=== PATIENT | female | born 1980 | race Asian ===

== ENCOUNTER 2017-03-04 04:30 | Inpatient (IN) | payer SELFPAY ==
[~2017-03-04] VITALS: Ht 156 cm; Wt 68.0 kg
[~2017-03-04 04:30] MED LIST: MOTRIN800 MG PO; PRENATAL VITAMI1 T10 PO
[2017-03-04] MEDS ORDERED: OXYTOCIN 20 UNITS/LR PREMIX 1,000 ML IV SCH (05:00)
[2017-03-04] MEDS ORDERED: METHYLERGONOVINE 0.2 MG/ML AMP IM PRN ×2 (05:05→19:10)
[2017-03-04] MEDS ORDERED: OXYTOCIN 10 UNITS/ML VIAL IM SCH (05:05)
[2017-03-04] MEDS ORDERED: AMPICILLIN 2,000 MG in NACL 0.9% MINI-BAG PLUS 100 ML IV SCH (05:05)
[2017-03-04] MEDS ORDERED: CARBOPROST 250 MCG/ML AMP IM PRN (05:05)
[2017-03-04] MEDS ORDERED: ROPIVACAINE 0.2%/NS PREMIX 250 ML EPI ONE (05:38)
[2017-03-04] MEDS ORDERED: ROPIVACAINE 0.2%/NS PREMIX 250 ML EPI SCH (05:55)
[2017-03-04 05:59] VITALS: BP 114/78
[2017-03-04] MEDS: LACTATED RINGERS 1,000 ML IV SCH ×3 (06:00→08:05)
[2017-03-04] MEDS ORDERED: AMPICILLIN 1,000 MG VIAL ONE (06:13)
[2017-03-04] MEDS ORDERED: OXYTOCIN 20 UNITS/LR PREMIX 1,000 ML IV ONE (08:04)
[2017-03-04] MEDS ORDERED: AMPICILLIN 1,000 MG in NACL 0.9% MINI-BAG PLUS 50 ML IV SCH (09:00)
--- NOTE | 2017-03-04 09:17 | NUR ---
PATIENT HAS BEEN SCREENED AND CATEGORIZED LOW NUTRITION RISK. PATIENT WILL BE SEEN WITHIN 7 DAYS OF ADMISSION. 03/10/[address]
[2017-03-04] MEDS ORDERED: ACETAMINOPHEN EXTRA STRENGTH 500 MG TAB PO PRN ×2 (18:10→22:40)
[2017-03-04] MEDS ORDERED: ACETAMINOPHEN EXTRA STRENGTH 500 MG TAB ONE ×2 (18:14→22:54)
[2017-03-04] MEDS ORDERED: AMPICILLIN 2,000 MG VIAL ONE (18:14)
[2017-03-04] MEDS ORDERED: METHYLERGONOVINE 0.2 MG/ML AMP ONE (18:58)
[2017-03-04] MEDS ORDERED: MEASLES, MUMPS, AND RUBELLA 1 VIAL SQVAC PRN (19:10)
[2017-03-04] MEDS ORDERED: oxyCODONE/APAP 5/325 MG 1 TAB TAB PO PRN (19:10)
[2017-03-04] MEDS ORDERED: OXYTOCIN 10 UNITS/ML VIAL IM PRN (19:10)
[2017-03-04] MEDS ORDERED: IBUPROFEN 800 MG TAB PO PRN (19:10)
[2017-03-04] MEDS ORDERED: BENZOCAINE/MENTHOL 20%-0.5% 60 GM CAN TP PRN (19:10)
[2017-03-04] MEDS ORDERED: HYDROcodone/APAP 5/325 MG 1 TAB TAB PO PRN (19:10)
[2017-03-04] MEDS ORDERED: TEMAZEPAM 15 MG CAP PO PRN (19:10)
[2017-03-04] MEDS ORDERED: DOCUSATE SOD/SENNA 50/8.6 MG 1 TAB PO SCH (21:00)
[2017-03-05] MEDS ORDERED: AMPICILLIN 500 MG CAP PO SCH
[2017-03-05] MEDS ORDERED: GENTAMICIN 120 MG in DEXTROSE 5% 100 ML IV SCH ×3 (00:15→09:00)
[2017-03-05] MEDS ORDERED: GENTAMICIN PER PHARMACY MC PRN (00:15)
[2017-03-05] MEDS ORDERED: GENTAMICIN 80 MG/2 ML VIAL ONE (01:12)
[2017-03-05] MEDS ORDERED: AMOXICILLIN 500 MG CAP ONE (01:22)
[2017-03-05] MEDS ORDERED: LACTATED RINGERS 1,000 ML IV SCH (01:25)
[2017-03-05] MEDS ORDERED: GENTAMICIN 80 MG in DEXTROSE 5% 100 ML IV SCH (10:00)
== END 2017-03-06 22:45 | disposition home or self-care (01) | DRG 774 ==
LOC: MLD 04:30 → MFCC 23:55
PROVIDERS: ADMIT Obstetrics & Gynecology; ATTEND Obstetrics & Gynecology
PROC: 10E0XZZ Delivery of Products of Conception, External Approach (ICD-10-PCS; principal; 2017-03-04)
PROC: 0KQM0ZZ Repair Perineum Muscle, Open Approach (ICD-10-PCS; 2017-03-04)
PROC: 00HU33Z Insertion of Infusion Device into Spinal Canal, Percutaneous Approach (ICD-10-PCS; 2017-03-04)
PROC: 3E0R3CZ (ICD-10-PCS; 2017-03-04)
DX: O24.12 Pre-existing type 2 diabetes mellitus, in childbirth (principal); E11.9 Type 2 diabetes mellitus without complications; O70.1 Second degree perineal laceration during delivery; Z37.0 Single live birth; Z3A.40 40 weeks gestation of pregnancy; Z87.891 Personal history of nicotine dependence; O09.523 Supervision of elderly multigravida, third trimester; Z28.21 Immunization not carried out because of patient refusal